=== PATIENT | female | born 1940 | race Caucasian/White ===

== ENCOUNTER 2016-11-01 11:41 | Emergency (ER) | payer MEDICARE ==
[~2016-11-01] VITALS: Ht 165.1 cm; Wt 86.0 kg
[~2016-11-01 11:41] MED LIST: ALBUAER3 INH; ASPI-110 PO; CENTTAB8 PO; CO Q10CA; CYMB60CA PO; FLUTI44I INH; FOLI1TAB4 PO; GLIM2TAB PO; HYDR-3516 PO; IPRASOL INH; ISOS20TA PO; LEVO-86 PO; LEVO125T4 PO; LISI10TA PO; METF500T PO; METH2.5T PO; METO50TA PO; NITR0.4S SL; OMEG100010; OXYC-433 PO; PRAV20TA PO; PRED2.5T PO; PRIL20CA9 PO; PROM10SO PO; SOMA350T PO; SULF500 PO; SYMB80AE INH; VAGI10TA VAGINAL; VITA10007 PO; VITA400T2 PO; XARE10TA PO; XARE20TA PO
[2016-11-01 11:54] VITALS: BP 111/53; PULSE 68; RESP 16; TEMP 98.7; O2SAT 96
--- NOTE | 2016-11-01 14:04 | PD ---
HPI Chief Complaint: Fall Time Seen by Provider: 14:02 Travel History International Travel<30 days: No Contact w/Intl Traveler<30days: No Traveled to known affect area: No History of Present Illness HPI Patient is a 76-year-old female presenting to emergency for evaluation after fall that occurred after she had an epidural performed today. Daughter is present and states the patient was getting dressed after an epidural injection in the hospital here when she states her leg gave out, she fell back hitting her left arm on a bedside table and then subsequently hitting her head on the floor. Patient presents complaining of back pain, headache, left shoulder pain , left hip pain. 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 She denies any chest pain, shortness of breath, abdominal pain in the leg pain. PFSH Past Medical History Hx Anticoagulant Therapy: Yes Arthritis: Yes (RHEUMATOID) Asthma: Yes Blood Disorders: No Anxiety: Yes Depression: Yes Heart Rhythm Problems: Yes Cancer: No Cardiovascular Problems: Yes High Cholesterol: Yes Chest Pain: No Congestive Heart Failure: No COPD: Yes Dementia: Yes Diabetes: Yes Patient Takes Glucophage: No Diminished Hearing: Yes Deep Vein Thrombosis: Yes (HX OF PE) Endocrine: Yes Fibromyalgia: Yes (POLYMYALGIA ) Gastrointestinal Disorders: Yes (COLITIS) GERD: No Glaucoma: No Genitourinary: Yes Hepatitis: No Hiatal Hernia: No Hypertension: Yes Immune Disorder: Yes Kidney Stones: No Medical other: Yes (ulcertive colitis, polymyalgia rheumatica) Musculoskeletal: Yes (POLYMYALGIA) Neurologic: No Psychiatric: No Reproductive: Yes Respiratory: Yes Immunizations Current: Yes Myocardial Infarction: No Renal Failure: Yes (ACUTE INSUFF; RESOLVED) Sleep Apnea: No Thyroid Disease: Yes Triglycerides - High: No Ulcer: No Tetanus Vaccination: < 5 Years Influenza Vaccination: Yes Menopausal: Yes Past Surgical History Abdominal Surgery: Yes (CHOLECYSTECTOMY) Appendectomy: No Body Medical Devices: POLYMYALGIA AND COLITIS Cardiac Surgery: Yes (ablasion) Cholecystectomy: Yes Ear Surgery: No Endocrine Surgery: No Eye Surgery: Yes (yesterday 02/20/12) Genitourinary Surgery: Yes (BLADDER REPAIR) Gynecologic Surgery: Yes (VAGINAL REPAIR 08/15) Hysterectomy: Yes Oral Surgery: No Pacemaker: No Thoracic Surgery: No Tonsillectomy: Yes Other Surgery: Yes (lump removed R BREAST, BENIGN) Social History Alcohol Use: Yes (SOCIALLY) Tobacco Use: No Substance Use: No Allergies-Medications (Allergen,Severity, Reaction): Coded Allergies: Penicillin (Verified Allergy, Severe, DIARRHEA, 11/01/16) Nitrofurantoin (Verified Allergy, Intermediate, 11/01/16) *MDRO Multi-Drug Resistant Organism (Verified Allergy, Unknown, 11/01/16) Enterobacter cloacae positive [facility] 09/2013 Reported Meds & Prescriptions Reported Meds & Active Scripts Active Reported Xarelto (Rivaroxaban) 20 Mg Tab 20 Mg PO DAILY Synthroid (Levothyroxine Sodium) 137 Mcg Tab 137 Mcg PO DAILY Glimepiride 2 Mg Tab 2 Mg PO BIDAC Soma (Carisoprodol) 350 Mg Tab 350 Mg PO BID PRN Co Q 10 (Coenzyme Q10 (Ubidecarenone)) [address] (Duloxetine HCl) 60 Mg Capdr 60 Mg PO DAILY Isosorbide Mononitrate 20 Mg Tab 60 Mg PO DAILY Take 2 doses 7 hours apart. Metoprolol Tartrate 50 Mg Tab 50 Mg PO BID Oxycodone-Acetaminophen 10-325 mg Tab 1 Tab PO Q4-6H PRN Nitrostat SL (Nitroglycerin) 0.4 Mg Subl 0.4 Mg SL DIRECTED PRN 1 tablet under the tongue as needed for chest pain. Repeat every 5 minutes for a total of 3 DOSES or call 911 if NO relief. Symbicort Inh (Budesonide/Formoterol Fumarate) 80-4.5 Mcg/Act Aero 2 Puff INH Q12HR Vagifem Vaginal (Estradiol Vaginal) 10 Mcg Vagtab 10 Mcg VAGINAL 2XWEEK [place] 3 1000 mg ([place]-3 Fatty Acids) 1 Cap Cap Proair Hfa 8.5 GM Inh (Albuterol Sulfate) 90 Mcg/Act Aer 1 Puff INH Q4H PRN 108 mcg/actuation Vitamin C (Ascorbic Acid) 1,000 Mg Tab 1,000 Mg PO DAILY Vitamin D (Cholecalciferol) 400 Unit Tab 1 Tab PO DAILY Folate (Folic Acid) 1 Mg Tab 1 Mg PO DAILY Levothyroxine (Levothyroxine Sodium) 125 Mcg Tab 125 Mcg PO DAILY Lisinopril-Hctz 10-12.5 Mg Tab 2 Tab PO DAILY Centrum Adults (Multiple Vitamins W/ Minerals) 1 Tab 1 Tab PO DAILY Prilosec (Omeprazole) 20 Mg Cap 40 Mg PO DAILY Prednisone 2.5 Mg Tab 2.5 Mg PO DAILY Duoneb (Ipratropium-Albuterol Neb) 0.5-2.5 Mg/3 Ml Neb 1 Nebule INH Q4HR NEB Review of Systems Except as stated in HPI: all other systems reviewed are Neg HENT: Positive: Headaches Cardiovascular: No: Chest Pain or Discomfort Respiratory: No: Shortness of Breath Gastrointestinal: No: Nausea, Abdominal Pain Musculoskeletal: Positive: Myalgias, Pain Neurologic: No: Focal Abnormalities, Change in Mentation, Sensory Disturbance Physical Exam Narrative GENERAL: Well-developed, well-nourished, elderly female. Resting comfortably in no acute distress. Daughter at bedside. SKIN: Warm and dry. HEAD: Atraumatic. Normocephalic. EYES: Pupils equal and round. No scleral icterus. No injection or drainage. ENT: No nasal bleeding or discharge. Mucous membranes pink and moist. NECK: Trachea midline. No JVD. CARDIOVASCULAR: Regular rate and rhythm. No murmur appreciated. RESPIRATORY: No accessory muscle use. Clear to auscultation. Breath sounds equal bilaterally. GASTROINTESTINAL: Abdomen soft, non-tender, nondistended. Hepatic and splenic margins not palpable. MUSCULOSKELETAL: No obvious deformities. No clubbing. No cyanosis. No edema. Tenderness to palpation on thoracic and lumbar spine. No step-off noted. 5/5 muscle strength in bilateral lower and upper extremities. Positive pedal pulses. 1+ Peripheral edema bilateral lower extremities, chronic. NEUROLOGICAL: Awake and alert. No obvious cranial nerve deficits. Motor grossly within normal limits. Normal speech. PSYCHIATRIC: Appropriate mood and affect; insight and judgment normal. Data Data Last Documented VS Vital Signs Date Time Temp Pulse Resp B/P Pulse Ox O2 Delivery O2 Flow Rate FiO2 11/01/16 11:54 98.7 68 16 111/[address] Thor Spine W/O Contrast (11/01/16 ) Ct Lumb Spine W/O Contrast (11/01/16 ) Shoulder, Complete (>2vws) (11/01/16 ) Hip, Uni(Ap&Lat) W Ap Pelvis (11/01/16 ) Ct Brain W/O Iv Contrast(Rout) (11/01/16 ) Acetaminophen (Tylenol) (11/01/16 15:00) [facility] Medical Decision Making Medical Screen Exam Complete: Yes Emergency Medical Condition: Yes Interpretation(s) Vital Signs Date Time Temp Pulse Resp B/P Pulse Ox O2 Delivery O2 Flow Rate FiO2 11/01/16 11:54 98.7 68 16 111/53 96 Differential Diagnosis Fracture versus sprain versus strain versus concussion versus contusion versus hemorrhage versus other Narrative Course Patient is a 76-year-old female presenting to the emergency department evaluation after mechanical fall after procedure this morning in the hospital. Patient is neurologically intact. Imaging ordered and pending. Patient has PICC line in left upper arm for IV antibiotics due to a chronic urinary tract infection. CT of the brain is negative for acute abnormality CT of the lumbar spine is negative acute abnormality CT scan of the thoracic spine is negative for acute abnormality X-ray of the left hip is negative for acute fracture or dislocation X-ray of the right shoulder is also negative for acute abnormality. Patient has been resting comfortably she is neurologically intact, she is encouraged follow-up with her primary care provider and her pain management doctor as scheduled. She is encouraged to return to emergency department for any new or worsening symptoms. She and daughter verbalized understanding of these instructions. Patient can continue her home pain medications. Patient is stable for discharge. Diagnosis Primary Impression: Fall Qualified Code: W19.XXXA - Fall, initial encounter Additional Impressions: Back pain Hip joint pain Qualified Code: M25.552 - Pain of left hip joint Shoulder injury Qualified Code: S49.92XA - Shoulder injury, left, initial encounter Referrals: Pain Management Primary Care Physician Patient Instructions: Back Pain (ED), General Instructions Additional Instructions: Follow-up with your primary doctor Follow-up with your supervisor painting department Apply warm moist heat to the affected area Continue home medications as previously prescribed Return to emergency department for any new or worsening symptoms Med/Other Pt SpecificInfo: No Change to Meds Disposition: 01 DISCHARGE HOME Condition: Stable Harper Fiore Nov 01, 2016 14:04
--- NOTE | 2016-11-01 14:29 | RADHPO ---
EXAM DATE/TIME: 11/01/2016 13:59 [facility] COMPARISON: No previous studies available for comparison. INDICATIONS : Left hip pain post fall after epidural injection today. MEDICAL HISTORY : Hypertension. Hypercholesterolemia. Ulcerative colitis. DVT. COPD. Arthrits. Diabetic. SURGICAL HISTORY : Tonsillectomy. Cholecystectomy. Hysterectomy. Bladder repair. Ablasion. Lumpectomy. ENCOUNTER: Initial ACUITY: 1 day PAIN SCORE: 6/10 LOCATION: Right hip FINDINGS: Examination of the left hip was performed with AP Pelvis. The primary and secondary trabecular patte rn of the femoral neck is intact. The hip joint is of normal width without significant sclerosis or bony hypertrophy. The acetabulum is grossly intact. CONCLUSION: No acute fracture or joint dislocation. Peyman Meehan MD on November 01, 2016 at 14:27 Board Certified Radiologist. This report was verified electronically.
--- NOTE | 2016-11-01 14:30 | RADHPO ---
EXAM DATE/TIME: 11/01/2016 14:02 [facility] COMPARISON: No previous studies available for comparison. INDICATIONS : Left shoulder pain post fall after epidural injection today. MEDICAL HISTORY : Hypertension. Hypercholesterolemia. Ulcerative colitis. COPD. DVT. diabetic. SURGICAL HISTORY : Tonsillectomy. Cholecystectomy. Hysterectomy. Bladder repari. Ablasion. Lumpectomy. ENCOUNTER: Initial ACUITY: 1 day PAIN SCORE: 8/10 LOCATION: Left shoulder FINDINGS: Multiple view examination of the left shoulder demonstrates no evidence of fracture or dislocation. The glenohumeral and acromioclavicular joints are maintained. There is normal range of motion betwee n internal and external rotation. Bony mineralization is normal. There is a left PICC line in place. CONCLUSION: No acute fracture. Left PICC line in place. Peyman Meehan MD on November 01, 2016 at 14:28 Board Certified Radiologist. This report was verified electronically.
[2016-11-01] MEDS ORDERED: ACETAMINOPHEN 325 MG TAB PO ONE (15:00)
--- NOTE | 2016-11-01 17:37 | RADHPO ---
EXAM DATE/TIME: 11/01/2016 16:56 [facility] COMPARISON: No previous studies available for comparison. INDICATIONS : Fall following epidural performed today. Posterior head trauma. RADIATION DOSE: 57.89 CTDIvol (mGy) MEDICAL HISTORY : Dementia. SURGICAL HISTORY : Tonsillectomy. ENCOUNTER: Initial ACUITY: 1 day PAIN SCALE: 8/10 LOCATION: occipital TECHNIQUE: Multiple contiguous axial images were obtained of the head. Using automated exposure control and adj ustment of the mA and/or kV according to patient size, radiation dose was kept as low as reasonably a chievable to obtain optimal diagnostic quality images. FINDINGS: CEREBRUM: The ventricles are normal for age. No evidence of midline shift, mass lesion, hemorrhage or acute in farction. No extra-axial fluid collections are seen. POSTERIOR FOSSA: The cerebellum and brainstem are intact. The 4th ventricle is midline. The cerebellopontine angle i s unremarkable. EXTRACRANIAL: The visualized portion of the orbits is intact. SKULL: The calvaria is intact. No evidence of skull fracture. CONCLUSION: Normal examination for a patient of this age. Peyman Meehan MD on November 01, 2016 at 17:35 Board Certified Radiologist. This report was verified electronically.
--- NOTE | 2016-11-01 17:50 | RADHPO ---
EXAM DATE/TIME: 11/01/2016 16:59 [facility] COMPARISON: No previous studies available for comparison. INDICATIONS : Fall today following epidural injection. Upper back pain. RADIATION DOSE: 43.59 CTDIvol (mGy) ; Combined studies - Thoracic Spine/Lumbar Spine MEDICAL HISTORY : Hypertension. Deep venous thrombosis. Diabetes. SURGICAL HISTORY : Hysterectomy. Cholecystectomy. ENCOUNTER: Initial ACUITY: 1 day PAIN SCALE: 7/10 LOCATION: upper back. TECHNIQUE: Volumetric scanning of the thoracic spine was performed. Multiplanar reconstructions in the sagittal , coronal and oblique axial planes were performed. Using automated exposure control and adjustment o f the mA and/or kV according to patient size, radiation dose was kept as low as reasonably achievable to obtain optimal diagnostic quality images. FINDINGS: The vertebral bodies of the thoracic spine are in normal alignment without evidence of subluxation. Vertebral body height is maintained. No fractures are seen. There are primary degenerative changes t hroughout the thoracic spine. T1-T2: Normal. T2-T3: The thecal sac has a normal diameter. No evidence of disc bulge or protrusion. T3-T4: The thecal sac has a normal diameter. No evidence of disc bulge or protrusion. T4-T5: The thecal sac has a normal diameter. No evidence of disc bulge or protrusion. T5-T6: The thecal sac has a normal diameter. No evidence of disc bulge or protrusion. T6-T7: The thecal sac has a normal diameter. No evidence of disc bulge or protrusion. T7-T8: The thecal sac has a normal diameter. No evidence of disc bulge or protrusion. T8-T9: The thecal sac has a normal diameter. No evidence of disc bulge or protrusion. T9-T10: The thecal sac has a normal diameter. No evidence of disc bulge or protrusion. T10-T11: The thecal sac has a normal diameter. No evidence of disc bulge or protrusion. T11-T12: The thecal sac has a normal diameter. No evidence of disc bulge or protrusion. T12-L1: The thecal sac has a normal diameter. No evidence of disc bulge or protrusion. CONCLUSION: 1. Primary bony degenerative changes of the thoracic spine. 2. No acute bony fracture. Peyman Meehan MD on November 01, 2016 at 17:46 Board Certified Radiologist. This report was verified electronically.
--- NOTE | 2016-11-01 17:58 | RADHPO ---
EXAM DATE/TIME: 11/01/2016 16:59 [facility] COMPARISON: No previous studies available for comparison. INDICATIONS : Fall today following epidural injection. Lower back pain. RADIATION DOSE: 43.59 CTDIvol (mGy) ; Combined studies - Thoracic Spine/Lumbar Spine MEDICAL HISTORY : Rheumatoid arthritis. Deep venous thrombosis. Diabetes. SURGICAL HISTORY : Cholecystectomy. Hysterectomy. ENCOUNTER: Initial ACUITY: 1 day PAIN SCALE: 8/10 LOCATION: lower back. TECHNIQUE: Volumetric scanning of the lumbar spine was performed. Multiplanar reconstructions in the sagittal, coronal and oblique axial planes were performed. Using automated exposure control and adjustment of the mA and/or kV according to patient size, radiation dose was kept as low as reasonably achievable t o obtain optimal diagnostic quality images. FINDINGS: VERTEBRAE: Normal vertebral body height. Primary bony degenerative changes of the lumbar spine. There is disc de generation with disc space narrowing at L4-5. ALIGNMENT: No evidence of subluxation. T12-L1: The thecal sac has a normal diameter. No evidence of disc bulge or protrusion. The neural foramina are patent bilaterally. L1-L2: The thecal sac has a normal diameter. No evidence of disc bulge or protrusion. The neural foramina are patent bilaterally. L2-L3: The thecal sac has a normal diameter. No evidence of disc bulge or protrusion. The neural foramina are patent bilaterally. L3-L4: The thecal sac has a normal diameter. No evidence of disc bulge or protrusion. The neural foramina are patent bilaterally. Bilateral facet arthritis. L4-L5: Moderate diffuse broad-based bulging and narrowing of the neuroforamina bilaterally. There is bilater al facet arthritis. Moderate spinal canal stenosis. L5-S1: Mild broad-based bulging. The neural foramina are patent. Bilateral facet arthritis. CONCLUSION: 1. No acute bony fracture. 2. Primary bony degenerative changes of the lumbar spine with disc space narrowing at L4-5. 3. Moderate diffuse broad-based bulging at L4-5 with moderate spinal canal stenosis. 4. Mild broad-based bulging L5-S1. 5. Bilateral facet arthritis at multiple levels. Peyman Meehan MD on November 01, 2016 at 17:54 Board Certified Radiologist. This report was verified electronically.
== END 2016-11-01 18:14 | disposition home or self-care (01) ==
LOC: PHED 11:41 → PHEFT 18:14
DX: S49.92XA Unspecified injury of left shoulder and upper arm, initial encounter (principal); M25.552 Pain in left hip; R51 Headache; M54.9 Dorsalgia, unspecified; W18.39XA Other fall on same level, initial encounter; Y93.89 Activity, other specified; Y92.239 Unspecified place in hospital as the place of occurrence of the external cause; M54.5 Low back pain; M79.605 Pain in left leg
CPT/HCPCS: 64483; 70450; 72128; 72131; 73030; 73502; 99152; J1642; J3301; Q9965

== ENCOUNTER → 2016-11-13 | Outpatient (CLI) | payer MEDICARE ==
[~2016-11-13] MED LIST changes: -ASPI-110 PO; -FLUTI44I INH; -HYDR-3516 PO; -METF500T PO; -METH2.5T PO; -PRAV20TA PO; -PROM10SO PO; +SIMV10TA PO; -SULF500 PO; +TRAM50TA PO; -XARE10TA PO; +ZOFR4TAB3 SL
[2016-11-13 16:43] LABS: BACTERIA, URINE RARE /hpf; BLOOD, URINE SMALL (NEG); GLUCOSE,URINE NEG (NEG); KETONE, URINE NEG (NEG); NITRITE,URINE NEG (NEG); PH, URINE 5.5 (5.0-8.5); SQUAMOUS EPITHELIAL CELL URINE 1 /hpf (0-5); URINE COLOR YELLOW (YELLW/STRAW)
== END ==
LOC: PLAB 14:51
PROVIDERS: ATTEND Specialist
DX: N39.0 Urinary tract infection, site not specified (principal); B96.20 Unspecified Escherichia coli [E. coli] as the cause of diseases classified elsewhere
CPT/HCPCS: 81001; 87077; 87086; 87186

== ENCOUNTER 2016-11-22 22:07 | Emergency (ER) | payer MEDICARE ==
[~2016-11-22 22:07] MED LIST changes: -SIMV10TA PO; -TRAM50TA PO; -ZOFR4TAB3 SL
[2016-11-22] MEDS ORDERED: ONDANSETRON HCL 4 MG/2 ML VIAL IV PUSH ONE (22:30)
[2016-11-22] MEDS ORDERED: MORPHINE SULFATE 4 MG/ML INJ IV PUSH ONE (22:30)
[2016-11-22 22:59] LABS: AUTOMATED NEUTROPHIL # 8.6 TH/MM3 (1.8-7.7); BASOPHIL % 0.3 % (0.0-2.0); EOSINOPHIL # 0.2 TH/MM3 (0-0.4); EOSINOPHIL % 1.9 % (0.0-4.0); HEMATOCRIT 34.4 % (35.0-46.0); HEMO FLAGS DIFF FINAL; LYMPH % 18.6 % (9.0-44.0); LYMPHOCYTE # 2.2 TH/MM3 (1.0-4.8); MEAN CELL VOLUME 96.3 FL (80.0-100.0); MEAN CORPUSCULAR HEMOGLOBIN 31.6 PG (27.0-34.0); MEAN CORPUSCULAR HGB CONC 32.8 % (32.0-36.0); MONO % 5.3 % (0.0-8.0); NEUT % 73.9 % (16.0-70.0); PLATELET COUNT 169 TH/MM3 (150-450); RED BLOOD COUNT 3.57 MIL/MM3 (4.00-5.30); RED CELL DISTRIBUTION WIDTH 13.8 % (11.6-17.2); WHITE BLOOD COUNT 11.7 TH/MM3 (4.0-11.0)
[2016-11-22 23:07] LABS: INTERNATIONAL NORMALIZED RATIO 1.2 RATIO; PROTHROMBIN TIME - PATIENT 12.8 SEC (9.8-11.6)
--- NOTE | 2016-11-22 23:07 | RADRPT ---
EXAM DATE/TIME: 11/22/2016 22:38 [facility] COMPARISON: No previous studies available for comparison. INDICATIONS : Right shoulder pain after patient fell from truck today MEDICAL HISTORY : None. SURGICAL HISTORY : None. ENCOUNTER: Initial ACUITY: 1 day PAIN SCORE: 10/10 LOCATION: Right entire shoulder FINDINGS: There is advanced osteoarthritis of the shoulder joint with large osteophytes and joint space narrowi ng. Moderate osteoarthritis of the a.c. joint. Hypertrophic changes noted around the acromion. No acu te fracture or dislocation. CONCLUSION: 1. Osteoarthritis of the right shoulder. No acute bony abnormalities. Oneil Figueroa MD on November 22, 2016 at 23:04 Board Certified Radiologist. This report was verified electronically.
--- NOTE | 2016-11-22 23:08 | RADRPT ---
EXAM DATE/TIME: 11/22/2016 22:46 [facility] COMPARISON: No previous studies available for comparison. INDICATIONS : Trauma to chest after patient fell from truck today MEDICAL HISTORY : None. SURGICAL HISTORY : PICC line ENCOUNTER: Initial ACUITY: 1 day PAIN SCORE: 0/10 LOCATION: Bilateral chest FINDINGS: Left PICC line tip is in superior vena cava. No focal consolidation or significant effusion. No pneum othorax. Heart size normal. Mildly tortuous aorta. CONCLUSION: 1. Left PICC line tip in superior vena cava. No active disease. Oneil Figueroa MD on November 22, 2016 at 23:05 Board Certified Radiologist. This report was verified electronically.
[2016-11-22 23:11] VITALS: BP 147/68; PULSE 68; RESP 16; TEMP 98.5; O2SAT 96
--- NOTE | 2016-11-22 23:11 | RADRPT ---
EXAM DATE/TIME: 11/22/2016 22:56 [facility] COMPARISON: No previous studies available for comparison. INDICATIONS : Fall. RADIATION DOSE: 42.99 CTDIvol (mGy) MEDICAL HISTORY : Dementia. Hypertension. SURGICAL HISTORY : Neck surgery. ENCOUNTER: Initial ACUITY: 1 day PAIN SCALE: 3/10 LOCATION: neck TECHNIQUE: Volumetric scanning of the cervical spine was performed. Multiplanar reconstructions in the sagittal, coronal and oblique axial planes were performed. Using automated exposure control and adjustment o f the mA and/or kV according to patient size, radiation dose was kept as low as reasonably achievable to obtain optimal diagnostic quality images. FINDINGS: VERTEBRAE: Normal vertebral body height. ALIGNMENT: No evidence of subluxation. C2-C3: The bony spinal canal is normal in size. No evidence of disc bulge or herniation. The neural forami na are bilaterally patent. C3-C4: The bony spinal canal is normal in size. No evidence of disc bulge or herniation. The neural forami na are bilaterally patent. C4-C5: The bony spinal canal is normal in size. No evidence of disc bulge or herniation. The neural forami na are bilaterally patent. C5-C6: The bony spinal canal is normal in size. No evidence of disc bulge or herniation. The neural forami na are bilaterally patent. C6-C7: The bony spinal canal is normal in size. No evidence of disc bulge or herniation. The neural forami na are bilaterally patent. C7-T1: The bony spinal canal is normal in size. No evidence of disc bulge or herniation. The neural forami na are bilaterally patent. CONCLUSION: 1. Mild degenerative disc disease and facet arthropathy. No acute findings. Oneil Figueroa MD on November 22, 2016 at 23:06 Board Certified Radiologist. This report was verified electronically.
--- NOTE | 2016-11-22 23:12 | RADRPT ---
EXAM DATE/TIME: 11/22/2016 22:56 [facility] COMPARISON: No previous studies available for comparison. INDICATIONS : Fall. RADIATION DOSE: 42.63 CTDIvol (mGy) MEDICAL HISTORY : Dementia. Hypertension. SURGICAL HISTORY : Neck surgery ENCOUNTER: Initial ACUITY: 1 day PAIN SCALE: 4/10 LOCATION: cranial TECHNIQUE: Multiple contiguous axial images were obtained of the head. Using automated exposure control and adj ustment of the mA and/or kV according to patient size, radiation dose was kept as low as reasonably a chievable to obtain optimal diagnostic quality images. FINDINGS: CEREBRUM: The ventricles are normal for age. No evidence of midline shift, mass lesion, hemorrhage or acute in farction. No extra-axial fluid collections are seen. POSTERIOR FOSSA: The cerebellum and brainstem are intact. The 4th ventricle is midline. The cerebellopontine angle i s unremarkable. EXTRACRANIAL: The visualized portion of the orbits is intact. SKULL: The calvaria is intact. No evidence of skull fracture. CONCLUSION: Normal examination for a patient of this age. No significant change has occurred. Oneil Figueroa MD on November 22, 2016 at 23:09 Board Certified Radiologist. This report was verified electronically.
[2016-11-22 23:43] LABS: BICARBONATE 28.8 MEQ/L (21.0-32.0)
[2016-11-23] MEDS ORDERED: traMADol HCL 50 MG TAB PO ONE (00:15)
--- NOTE | 2016-11-23 00:18 | PD ---
HPI Chief Complaint: Fall Time Seen by Provider: 22:17 Travel History International Travel<30 days: No Contact w/Intl Traveler<30days: No Traveled to known affect area: No History of Present Illness HPI Patient is a 76-year-old female comes in today after fall. She was climbing into her truck when she slipped and fell backwards onto her head. She denies any loss of consciousness. He is complaining of headache and right shoulder pain. She was feeling normally prior to the fall. She denies any nausea or vomiting. She denies any blurred vision. She denies any numbness or tingling in her extremities. She denies any chest pain or shortness of breath. She denies any abdominal pain. PFSH Past Medical History Hx Anticoagulant Therapy: Yes Arthritis: Yes (RHEUMATOID) Asthma: Yes Blood Disorders: No Anxiety: Yes Depression: Yes Heart Rhythm Problems: Yes Cancer: No Cardiovascular Problems: Yes High Cholesterol: Yes Chest Pain: No Congestive Heart Failure: No COPD: Yes Dementia: Yes Diabetes: Yes Patient Takes Glucophage: No Diminished Hearing: Yes Deep Vein Thrombosis: Yes (HX OF PE) Endocrine: Yes Fibromyalgia: Yes (POLYMYALGIA ) Gastrointestinal Disorders: Yes (COLITIS) GERD: No Glaucoma: No Genitourinary: Yes Hepatitis: No Hiatal Hernia: No Heparin Induced Thrombocytopen: No Hypertension: Yes Immune Disorder: Yes Implanted Vascular Access Dvce: No Kidney Stones: No Medical other: Yes (ulcertive colitis, polymyalgia rheumatica) Musculoskeletal: Yes (POLYMYALGIA) Neurologic: No Psychiatric: No Reproductive: Yes Respiratory: Yes Immunizations Current: Yes Myocardial Infarction: No Renal Failure: Yes (ACUTE INSUFF; RESOLVED) Sleep Apnea: No Thyroid Disease: Yes Triglycerides - High: No Ulcer: No Menopausal: Yes Past Surgical History Abdominal Surgery: Yes (CHOLECYSTECTOMY) Appendectomy: No Body Medical Devices: POLYMYALGIA AND COLITIS Cardiac Surgery: Yes (ablasion) Cholecystectomy: Yes Ear Surgery: No Endocrine Surgery: No Eye Surgery: Yes (yesterday 02/20/12) Genitourinary Surgery: Yes (BLADDER REPAIR) Gynecologic Surgery: Yes (VAGINAL REPAIR 08/15) Hysterectomy: Yes Neurologic Surgery: No Oral Surgery: No Pacemaker: No Thoracic Surgery: No Tonsillectomy: Yes Other Surgery: Yes (lump removed R BREAST, BENIGN) Social History Alcohol Use: Yes (SOCIALLY) Tobacco Use: No Substance Use: No Allergies-Medications (Allergen,Severity, Reaction): Coded Allergies: Penicillin (Verified Allergy, Severe, DIARRHEA, 11/01/16) Nitrofurantoin (Verified Allergy, Intermediate, 11/01/16) *MDRO Multi-Drug Resistant Organism (Verified Allergy, Unknown, 11/15/16) Enterobacter cloacae positive [facility] 09/2013; ESBL E.Coli (urine)-11/13/16 Reported Meds & Prescriptions Reported Meds & Active Scripts Active Tramadol (Tramadol HCl) 50 Mg Tab 50 Mg PO Q6H PRN Reported Xarelto (Rivaroxaban) 20 Mg Tab 20 Mg PO DAILY Synthroid (Levothyroxine Sodium) 137 Mcg Tab 137 Mcg PO DAILY Glimepiride 2 Mg Tab 2 Mg PO BIDAC Soma (Carisoprodol) 350 Mg Tab 350 Mg PO BID PRN Co Q 10 (Coenzyme Q10 (Ubidecarenone)) [address] (Duloxetine HCl) 60 Mg Capdr 60 Mg PO DAILY Isosorbide Mononitrate 20 Mg Tab 60 Mg PO DAILY Take 2 doses 7 hours apart. Metoprolol Tartrate 50 Mg Tab 50 Mg PO BID Oxycodone-Acetaminophen 10-325 mg Tab 1 Tab PO Q4-6H PRN Nitrostat SL (Nitroglycerin) 0.4 Mg Subl 0.4 Mg SL DIRECTED PRN 1 tablet under the tongue as needed for chest pain. Repeat every 5 minutes for a total of 3 DOSES or call 911 if NO relief. Symbicort Inh (Budesonide/Formoterol Fumarate) 80-4.5 Mcg/Act Aero 2 Puff INH Q12HR Vagifem Vaginal (Estradiol Vaginal) 10 Mcg Vagtab 10 Mcg VAGINAL 2XWEEK [place] 3 1000 mg ([place]-3 Fatty Acids) 1 Cap Cap Proair Hfa 8.5 GM Inh (Albuterol Sulfate) 90 Mcg/Act Aer 1 Puff INH Q4H PRN 108 mcg/actuation Vitamin C (Ascorbic Acid) 1,000 Mg Tab 1,000 Mg PO DAILY Vitamin D (Cholecalciferol) 400 Unit Tab 1 Tab PO DAILY Folate (Folic Acid) 1 Mg Tab 1 Mg PO DAILY Levothyroxine (Levothyroxine Sodium) 125 Mcg Tab 125 Mcg PO DAILY Lisinopril-Hctz 10-12.5 Mg Tab 2 Tab PO DAILY Centrum Adults (Multiple Vitamins W/ Minerals) 1 Tab 1 Tab PO DAILY Prilosec (Omeprazole) 20 Mg Cap 40 Mg PO DAILY Prednisone 2.5 Mg Tab 2.5 Mg PO DAILY Duoneb (Ipratropium-Albuterol Neb) 0.5-2.5 Mg/3 Ml Neb 1 Nebule INH Q4HR NEB Review of Systems Except as stated in HPI: all other systems reviewed are Neg General / Constitutional: No: Fever, Chills Eyes: No: Blurred Vision HENT: Positive: Headaches Cardiovascular: No: Chest Pain or Discomfort Respiratory: No: Shortness of Breath Gastrointestinal: No: Nausea, Vomiting, Abdominal Pain Musculoskeletal: Positive: Pain Skin: No Change in Pigmentation Neurologic: No: Weakness, Dizziness Physical Exam Narrative GENERAL: Awake and alert, in no acute distress. SKIN: Warm and dry. HEAD: Hematoma to the left occiput. EYES: Pupils equal and round. No scleral icterus. Extraocular movements intact. ENT: Mucous membranes pink and moist. NECK: Trachea midline. No JVD. CARDIOVASCULAR: Regular rate and rhythm. No murmur appreciated. RESPIRATORY: No accessory muscle use. Clear to auscultation. Breath sounds equal bilaterally. GASTROINTESTINAL: Abdomen soft, non-tender, nondistended. MUSCULOSKELETAL: No obvious deformities. No clubbing. No cyanosis. No edema. NEUROLOGICAL: Awake and alert. No obvious cranial nerve deficits. Motor grossly within normal limits. Normal speech. PSYCHIATRIC: Appropriate mood and affect; insight and judgment normal. Data Data Last Documented VS Vital Signs Date Time Temp Pulse Resp B/P Pulse Ox O2 Delivery O2 Flow Rate FiO2 11/22/16 23:12 Room Air 11/22/16 23:11 98.5 68 16 147/[address] Brain W/O Iv Contrast(Rout) (11/22/16 ) Ct Cerv Spine W/O Contrast (11/22/16 ) Shoulder, Complete (>2vws) (11/22/16 ) Complete Blood Count With Diff (11/22/16 22:17) Basic Metabolic Panel (Bmp) (11/22/16 22:17) Act Partial Throm Time (Ptt) (11/22/16 22:17) Prothrombin Time / Inr (Pt) (11/22/16 22:17) Morphine Inj (Morphine Inj) (11/22/16 22:30) Ondansetron Inj (Zofran Inj) (11/22/16 22:30) Chest, Single Ap (11/22/16 ) Tramadol (Ultram) (11/23/16 00:15) Labs Laboratory Tests Test 11/22/16 22:33 White Blood Count 11.7 TH/MM3 Red Blood Count 3.57 MIL/MM3 Hemoglobin 11.3 GM/DL Hematocrit 34.4 % Mean Corpuscular Volume 96.3 FL Mean Corpuscular Hemoglobin 31.6 PG Mean Corpuscular Hemoglobin 32.8 % Concent Red Cell Distribution Width 13.8 % Platelet Count 169 TH/MM3 Mean Platelet Volume 8.5 FL Neutrophils (%) (Auto) 73.9 % Lymphocytes (%) (Auto) 18.6 % Monocytes (%) (Auto) 5.3 % Eosinophils (%) (Auto) 1.9 % Basophils (%) (Auto) 0.3 % Neutrophils # (Auto) 8.6 TH/MM3 Lymphocytes # (Auto) 2.2 TH/MM3 Monocytes # (Auto) 0.6 TH/MM3 Eosinophils # (Auto) 0.2 TH/MM3 Basophils # (Auto) 0.0 TH/MM3 CBC Comment DIFF FINAL Differential Comment Prothrombin Time 12.8 SEC Prothromb Time International 1.2 RATIO Ratio Activated Partial 32.0 SEC Thromboplast Time Sodium Level 137 MEQ/L Potassium Level 4.0 MEQ/L Chloride Level 101 MEQ/L Carbon Dioxide Level 28.8 MEQ/L Anion Gap 7 MEQ/L Blood Urea Nitrogen 31 MG/DL Creatinine 1.11 MG/DL Estimat Glomerular Filtration 48 ML/MIN Rate Random Glucose 182 MG/DL Calcium Level 8.5 MG/DL [facility] Medical Decision Making Medical Screen Exam Complete: Yes Emergency Medical Condition: Yes Differential Diagnosis ICH versus cervical spine fracture versus shoulder fracture versus shoulder sprain Narrative Course Patient is a 76-year-old female who comes in after a fall tonight. Exam shows hematoma to the left side of the head. IV established, labs sent. Coags were within normal limits. CT head and C-spine performed show no acute abnormalities. X-ray of the right shoulder performed shows severe arthritis, no acute abnormalities. Patient given pain medicine. Patient advised of warning signs for head injuries and advised to return immediately if she has any increased headache, vomiting, change in mental status. She is comfortable with discharge at this time. Advised follow-up with her doctor. Diagnosis Primary Impression: Fall Qualified Code: W19.XXXA - Fall, initial encounter Patient Instructions: Fall Prevention (ED), General Instructions, Head Injury ( ED) Additional Instructions: Follow up with your doctor. Return to the ED if you have any worsening symptoms , especially if you have a change in mental status, vomiting, worsening headache. Scripts Tramadol 50 Mg Tab50 Mg PO Q6H PRN (PAIN) #10 TAB Ref 0 Prov:Cristina Mcknight MD 11/23/16 Disposition: 01 DISCHARGE HOME Condition: Stable Cristina Mcknight MD Nov 23, 2016 00:18
[2016-11-23] MEDS ORDERED: TRAM50TA PO (00:19)
== END 2016-11-23 01:00 | disposition home or self-care (01) ==
LOC: NEPA 22:07
DX: S00.83XA Contusion of other part of head, initial encounter (principal); M19.011 Primary osteoarthritis, right shoulder; I10 Essential (primary) hypertension; E11.9 Type 2 diabetes mellitus without complications; F03.90 Unspecified dementia, unspecified severity, without behavioral disturbance, psychotic disturbance, mood disturbance, and anxiety; E78.00 Pure hypercholesterolemia, unspecified; W17.89XA Other fall from one level to another, initial encounter; Z79.01 Long term (current) use of anticoagulants; Z79.84 Long term (current) use of oral hypoglycemic drugs; Z87.39 Personal history of other diseases of the musculoskeletal system and connective tissue; Z87.09 Personal history of other diseases of the respiratory system; Z86.59 Personal history of other mental and behavioral disorders; Z86.79 Personal history of other diseases of the circulatory system; Z87.19 Personal history of other diseases of the digestive system
CPT/HCPCS: 70450; 71010; 72125; 73030; 80048; 85025; 85610; 85730; 96374; 96375; 99284; J2270; J2405

== ENCOUNTER 2016-11-25 21:09 | Emergency (ER) | payer MEDICARE ==
[~2016-11-25] VITALS: Ht 165.1 cm; Wt 82.0 kg
[~2016-11-25 21:09] MED LIST changes: +TRAM50TA PO
[2016-11-25 21:11] VITALS: BP 156/86; PULSE 82; RESP 16; TEMP 98.3; O2SAT 96
[2016-11-26] MEDS ORDERED: SODIUM CHLORID 0.9% 500 ML INJ 500 ML IV ONE (01:00)
[2016-11-26] MEDS ORDERED: ONDANSETRON HCL 4 MG/2 ML VIAL IV ONE (01:00)
[2016-11-26] MEDS ORDERED: SIMV10TA PO (01:02)
--- NOTE | 2016-11-26 01:16 | RADRPT ---
EXAM DATE/TIME: 11/26/2016 01:07 [facility] COMPARISON: CHEST SINGLE AP, November 22, 2016, 22:46. INDICATIONS : Short of breath. MEDICAL HISTORY : None. SURGICAL HISTORY : PICC line. ENCOUNTER: Initial ACUITY: 1 day PAIN SCORE: 0/10 LOCATION: Bilateral chest FINDINGS: Mild cardiomegaly. Left PICC line tip overlies the SVC. No consolidation or effusion. Stable linear a telectasis left lung base. CONCLUSION: No significant change has occurred. Boubacar Underwood MD on November 26, 2016 at 1:14 Board Certified Radiologist. This report was verified electronically.
[2016-11-26 01:29] LABS: AUTOMATED NEUTROPHIL # 6.4 TH/MM3 (1.8-7.7); BASOPHIL # 0.1 TH/MM3 (0-0.2); BASOPHIL % 0.6 % (0.0-2.0); EOSINOPHIL # 0.3 TH/MM3 (0-0.4); EOSINOPHIL % 3.5 % (0.0-4.0); HEMO FLAGS DIFF FINAL; LYMPH % 21.3 % (9.0-44.0); MEAN CELL VOLUME 94.6 FL (80.0-100.0); MEAN CORPUSCULAR HEMOGLOBIN 32.1 PG (27.0-34.0); MEAN CORPUSCULAR HGB CONC 33.9 % (32.0-36.0); MONO % 6.2 % (0.0-8.0); NEUT % 68.4 % (16.0-70.0); PLATELET COUNT 166 TH/MM3 (150-450); RED BLOOD COUNT 3.28 MIL/MM3 (4.00-5.30); RED CELL DISTRIBUTION WIDTH 13.8 % (11.6-17.2); WHITE BLOOD COUNT 9.4 TH/MM3 (4.0-11.0)
[2016-11-26 01:37] LABS: APTT (PATIENT) 33.8 SEC (24.3-30.1); INTERNATIONAL NORMALIZED RATIO 1.2 RATIO; PROTHROMBIN TIME - PATIENT 13.7 SEC (9.8-11.6)
[2016-11-26 01:40] LABS: ALT (GPT) 31 U/L (10-53); ANION GAP 7 MEQ/L (5-15); AST (GOT) 16 U/L (15-37); BICARBONATE 28.6 MEQ/L (21.0-32.0); BLOOD UREA NITROGEN 18 MG/DL (7-18); CHLORIDE 100 MEQ/L (98-107); GLOMERULAR FILTRATION RATE 68 ML/MIN (>89); POTASSIUM 3.4 MEQ/L (3.5-5.1); SODIUM (NA) 136 MEQ/L (136-145)
[2016-11-26 01:42] LABS: ALKALINE PHOSPHATASE 74 U/L (45-117); TOTAL BILIRUBIN ADULT 0.2 MG/DL (0.2-1.0)
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
[2016-11-26 02:17] LABS: BLOOD, URINE NEG (NEG); COMMENT (UR) CULTURE INDICATED; CULTURE IF INDICATED CULTURE INDICATED; GLUCOSE,URINE NEG (NEG); KETONE, URINE NEG (NEG); NITRITE,URINE NEG (NEG); SQUAMOUS EPITHELIAL CELL URINE <1 /hpf (0-5); TRANSITIONAL EPI CELLS, URINE <1 /hpf; URINE COLOR YELLOW (YELLW/STRAW)
[2016-11-26] MEDS ORDERED: ZOFR4TAB3 SL (02:36)
--- NOTE | 2016-11-26 02:37 | PD ---
HPI Chief Complaint: Head Injury Time Seen by Provider: 00:51 Travel History International Travel<30 days: No Contact w/Intl Traveler<30days: No Traveled to known affect area: No History of Present Illness HPI The patient is 76 year old female who presents to the [facility] emergency department with a history of headache, dizziness, nausea and vomiting that began after a fall when she was climbing up into a truck and fell backwards onto the concrete, striking the back of her head. The patient had no loss of consciousness associated with this. She was seen in the emergency department related to the fall on November 22. The patient had a CT scan of the head and neck done that was unremarkable regarding acute trauma. The patient was noted to have a scalp contusion on the occiput with an abrasion. The patient at that time had no nausea or vomiting. The patient reports that the nausea and vomiting began yesterday. She reports that she's had 4 episodes of vomiting. She denies having any diarrhea. She reports that she feels unsteady on her feet. She reports that bending over seems to make the pain worse. The patient is chronically anticoagulated on Xarelto related to a history of factor V Leiden deficiency and prior pulmonary embolism. The patient reports that today she also noticed that she had a red spot that developed on the white of her right eye. The patient denies any recent fevers, cough, congestion, neck pain, chest pain, shortness of breath, abdominal pain, urinary symptoms, or other neurologic symptoms. [facility] Past Medical History Narrative Medical The patient's past medical history is significant for rheumatoid arthritis, history of being chronically anticoagulated on Xarelto related to a factor V Leiden deficiency and prior PE, history of asthma, anxiety and depression, history of hyperlipidemia, history of COPD, history of diabetes mellitus, ulcerative colitis, polymyalgia rheumatica, and chronic renal insufficiency. The patient reports that she's had a chronic urinary tract infection for the last 9 years. She receives antibiotic infusions for this. Hx Anticoagulant Therapy: Yes (FACTOR 5) Arthritis: Yes (RHEUMATOID) Asthma: Yes Blood Disorders: No Anxiety: Yes Depression: Yes Heart Rhythm Problems: Yes Cancer: Yes (skin cancer on face) Cardiovascular Problems: Yes (HTN) High Cholesterol: Yes Chest Pain: No Congestive Heart Failure: No COPD: Yes Dementia: Yes Diabetes: Yes Patient Takes Glucophage: No Diminished Hearing: Yes Deep Vein Thrombosis: Yes (HX OF PE) Endocrine: Yes Fibromyalgia: Yes (POLYMYALGIA ) Gastrointestinal Disorders: Yes (ulcerative colitis) GERD: Yes Glaucoma: No Genitourinary: Yes Hepatitis: No Hiatal Hernia: No Heparin Induced Thrombocytopen: No Hypertension: Yes Immune Disorder: Yes Implanted Vascular Access Dvce: No Kidney Stones: No Medical other: Yes (factor 5 gene, polymyalgia) Musculoskeletal: Yes (POLYMYALGIA) Neurologic: No Psychiatric: No Reproductive: Yes Respiratory: Yes (COPD, ASTHMA) Immunizations Current: Yes Myocardial Infarction: No Renal Failure: Yes (ACUTE INSUFF; RESOLVED) Sleep Apnea: No Thyroid Disease: Yes Triglycerides - High: No Ulcer: No Influenza Vaccination: Yes Menopausal: No : 3 Para: 3 Past Surgical History Narrative Surgical The patient's past surgical history is significant for cholecystectomy, cardiac ablation, history of a bladder repair, vaginal repair, eye surgery, lump removal from the right breast that was benign, hysterectomy. Abdominal Surgery: Yes (CHOLECYSTECTOMY) Appendectomy: No Body Medical Devices: POLYMYALGIA AND COLITIS Cardiac Surgery: Yes (ablasion) Cholecystectomy: Yes Ear Surgery: No Endocrine Surgery: No Eye Surgery: Yes (left eye retina surgery) Genitourinary Surgery: Yes (BLADDER REPAIR) Gynecologic Surgery: Yes (VAGINAL REPAIR 08/15) Hysterectomy: Yes Neurologic Surgery: No Oral Surgery: No Pacemaker: No Thoracic Surgery: No Tonsillectomy: Yes Other Surgery: Yes (lump removed R BREAST, BENIGN) Social History Alcohol Use: Yes (occassionally) Tobacco Use: No Substance Use: No Allergies-Medications (Allergen,Severity, Reaction): Coded Allergies: Penicillin (Verified Allergy, Severe, DIARRHEA, 11/25/16) Nitrofurantoin (Verified Allergy, Intermediate, 11/25/16) *MDRO Multi-Drug Resistant Organism (Verified Allergy, Unknown, 11/25/16) Enterobacter cloacae positive [facility] 09/2013; ESBL E.Coli (urine)-11/13/16 Reported Meds & Prescriptions Reported Meds & Active Scripts Active Zofran Odt (Ondansetron Odt) 4 Mg Tab 4 Mg SL Q6HR PRN Tramadol (Tramadol HCl) 50 Mg Tab 50 Mg PO Q6H PRN Reported Simvastatin 10 Mg Tab 10 Mg PO HS Xarelto (Rivaroxaban) 20 Mg Tab 20 Mg PO DAILY Synthroid (Levothyroxine Sodium) 137 Mcg Tab 137 Mcg PO DAILY Glimepiride 2 Mg Tab 2 Mg PO BIDAC Soma (Carisoprodol) 350 Mg Tab 350 Mg PO BID PRN Co Q 10 (Coenzyme Q10 (Ubidecarenone)) [address] (Duloxetine HCl) 60 Mg Capdr 60 Mg PO DAILY Isosorbide Mononitrate 20 Mg Tab 60 Mg PO DAILY Take 2 doses 7 hours apart. Metoprolol Tartrate 50 Mg Tab 50 Mg PO BID Oxycodone-Acetaminophen 10-325 mg Tab 1 Tab PO Q4-6H PRN Nitrostat SL (Nitroglycerin) 0.4 Mg Subl 0.4 Mg SL DIRECTED PRN 1 tablet under the tongue as needed for chest pain. Repeat every 5 minutes for a total of 3 DOSES or call 911 if NO relief. Symbicort Inh (Budesonide/Formoterol Fumarate) 80-4.5 Mcg/Act Aero 2 Puff INH Q12HR Vagifem Vaginal (Estradiol Vaginal) 10 Mcg Vagtab 10 Mcg VAGINAL 2XWEEK [place] 3 1000 mg ([place]-3 Fatty Acids) 1 Cap Cap Proair Hfa 8.5 GM Inh (Albuterol Sulfate) 90 Mcg/Act Aer 1 Puff INH Q4H PRN 108 mcg/actuation Vitamin C (Ascorbic Acid) 1,000 Mg Tab 1,000 Mg PO DAILY Vitamin D (Cholecalciferol) 400 Unit Tab 1 Tab PO DAILY Folate (Folic Acid) 1 Mg Tab 1 Mg PO DAILY Levothyroxine (Levothyroxine Sodium) 125 Mcg Tab 125 Mcg PO DAILY Lisinopril-Hctz 10-12.5 Mg Tab 2 Tab PO DAILY Centrum Adults (Multiple Vitamins W/ Minerals) 1 Tab 1 Tab PO DAILY Prilosec (Omeprazole) 20 Mg Cap 40 Mg PO DAILY Prednisone 2.5 Mg Tab 2.5 Mg PO DAILY Duoneb (Ipratropium-Albuterol Neb) 0.5-2.5 Mg/3 Ml Neb 1 Nebule INH Q4HR NEB Review of Systems Except as stated in HPI: all other systems reviewed are Neg General / Constitutional: No: Fever Eyes: No: Visual changes HENT: Positive: Headaches, Neck Pain, No: Lightheadedness, Neck Stiffness Cardiovascular: No: Chest Pain or Discomfort Respiratory: No: Shortness of Breath Gastrointestinal: Positive: Nausea, Vomiting, No: Diarrhea, Abdominal Pain, Changes in Bowel Habits, Indigestion, Loss of Appetite Genitourinary: No: Dysuria Musculoskeletal: No: Pain Skin: No Rash Neurologic: Positive: Dizziness, Coordination Problem, No: Weakness, Focal Abnormalities, Change in Mentation, Slurred Speech, Sensory Disturbance Psychiatric: No: Depression Endocrine: No: Polydipsia Hematologic/Lymphatic: No: Easy Bruising Physical Exam Narrative General: The patient is a well-developed well-nourished female in no acute distress. Head and Neck exam: Head is normocephalic, without evidence of trauma to the posterior occipital scalp. The patient on examination has a scalp hematoma with overlying abrasion. There is tenderness to palpation at this site. No step-off or crepitus. Eyes: EOMI, pupils are equal round and reactive to light. The patient's right eye on examination has a small slit come to arrival hemorrhage at approximately the 2 o'clock position. Nose: Midline septum with pink mucous membranes Mouth: Dentition unremarkable. Moist mucus membranes. Posterior oropharynx is not erythematous. No tonsillar hypertrophy. Uvula midline. Airway patent. Neck: No palpable lymphadenopathy. No nuchal rigidity. No thyromegaly. The patient has no spinous process tenderness to palpation. No step-off or crepitus , no erythema or ecchymosis. The patient has paraspinal cervical muscle tenderness on palpation bilaterally. Cardiovascular: Regular rate and rhythm without murmurs, gallops, or rubs. Lungs: Clear to auscultation bilaterally. No wheezes, rhonchi, or rales. Abdomen: Soft, without tenderness to palpation in all 4 quadrants of the abdomen. No guarding, rebound, or rigidity. Normal bowel sounds are audible. No tenderness on palpation of McBurney's point. Negative Menendez's sign. Extremities: No clubbing, cyanosis, or edema. 2+ pulses in all 4 extremities. Back: No spinous process tenderness to palpation. No costovertebral angle tenderness to palpation. Neurologic Exam: Cranial nerves 2-12 were intact on exam. Strength is 5/5 in all 4 extremities. No sensory deficits noted. Data Data Last Documented VS Vital Signs Date Time Temp Pulse Resp B/P Pulse Ox O2 Delivery O2 Flow Rate FiO2 11/25/16 21:11 98.3 82 16 156/86 96 Orders Complete Blood Count With Diff (11/26/16 00:51) Comprehensive Metabolic Panel (11/26/16 00:51) Prothrombin Time / Inr (Pt) (11/26/16 00:51) Act Partial Throm Time (Ptt) (11/26/16 00:51) C-Reactive Protein (Crp) (11/26/16 00:51) Lipase (11/26/16 00:51) Urinalysis - C+S If Indicated (11/26/16 00:51) Chest, Single Ap (11/26/16 00:51) Ct Brain W/O Iv Contrast(Rout) (11/26/16 00:51) Iv Access Insert/Monitor (11/26/16 00:51) Ecg Monitoring (11/26/16 00:51) Oximetry (11/26/16 00:51) Ondansetron Inj (Zofran Inj) (11/26/16 01:00) Sodium Chlorid 0.9% 500 Ml Inj (Ns 500 M (11/26/16 01:00) Urine Culture (11/26/16 02:00) Oral Rehydration (11/26/16 02:37) Morphine Inj (Morphine Inj) (11/26/16 04:15) Oxycodone-Acetamin 5-325 Mg (Percocet (11/26/16 05:15) Labs Laboratory Tests Test 11/26/16 11/26/16 01:15 02:00 White Blood Count 9.4 TH/MM3 Red Blood Count 3.28 MIL/MM3 Hemoglobin 10.5 GM/DL Hematocrit 31.0 % Mean Corpuscular Volume 94.6 FL Mean Corpuscular Hemoglobin 32.1 PG Mean Corpuscular Hemoglobin 33.9 % Concent Red Cell Distribution Width 13.8 % Platelet Count 166 TH/MM3 Mean Platelet Volume 8.6 FL Neutrophils (%) (Auto) 68.4 % Lymphocytes (%) (Auto) 21.3 % Monocytes (%) (Auto) 6.2 % Eosinophils (%) (Auto) 3.5 % Basophils (%) (Auto) 0.6 % Neutrophils # (Auto) 6.4 TH/MM3 Lymphocytes # (Auto) 2.0 TH/MM3 Monocytes # (Auto) 0.6 TH/MM3 Eosinophils # (Auto) 0.3 TH/MM3 Basophils # (Auto) 0.1 TH/MM3 CBC Comment DIFF FINAL Differential Comment Prothrombin Time 13.7 SEC Prothromb Time International 1.2 RATIO Ratio Activated Partial 33.8 SEC Thromboplast Time Sodium Level 136 MEQ/L Potassium Level 3.4 MEQ/L Chloride Level 100 MEQ/L Carbon Dioxide Level 28.6 MEQ/L Anion Gap 7 MEQ/L Blood Urea Nitrogen 18 MG/DL Creatinine 0.81 MG/DL Estimat Glomerular Filtration 68 ML/MIN Rate Random Glucose 125 MG/DL Calcium Level 8.7 MG/DL Total Bilirubin 0.2 MG/DL Aspartate Amino Transf 16 U/L (AST/SGOT) Alanine Aminotransferase 31 U/L (ALT/SGPT) Alkaline Phosphatase 74 U/L C-Reactive Protein 4.35 MG/DL Total Protein 6.5 GM/DL Albumin 2.8 GM/DL Lipase 72 U/L Urine Color YELLOW Urine Turbidity CLEAR Urine pH 6.0 Urine Specific [place] 1.008 Urine Protein NEG mg/dL Urine Glucose (UA) NEG mg/dL Urine Ketones NEG mg/dL Urine Occult Blood NEG Urine Nitrite NEG Urine Bilirubin NEG Urine Urobilinogen LESS THAN 2.0 MG/DL Urine Leukocyte Esterase MOD Urine RBC LESS THAN 1 /hpf Urine WBC 37 /hpf Urine Squamous Epithelial <1 /hpf Cells Urine Transitional Epithelial <1 /hpf Cells Microscopic Urinalysis Comment CULTURE INDICATED MDM Medical Decision Making Medical Screen Exam Complete: Yes Emergency Medical Condition: Yes Medical Record Reviewed: Yes Interpretation(s) Last Impressions Head CT 11/26/1650 Signed Impressions: Service Date/Time: Saturday, November 26, 2016 01:33 - CONCLUSION: Normal examination for a patient of this age. Boubacar Underwood MD Chest X-Ray 11/26/1650 Signed Impressions: Service Date/Time: Saturday, November 26, 2016 01:07 - CONCLUSION: No significant change has occurred. Boubacar Underwood MD Differential Diagnosis Latent intracranial hemorrhage status post trauma, versus viral syndrome, versus electrolyte abnormality Narrative Course During the course of the patients emergency department visit, the patients history, examination, and differential diagnosis were reviewed with the patient. The patient had IV access obtained and blood work sent for analysis. The patient was placed on a monitoring manager with oximetry and blood pressure monitoring. The patient was provided Zofran 4 mg IV 1, normal saline a 500 mL bolus 1. The patient was given morphine 2 mg IV 1 for pain. The patients laboratory studies were reviewed and remarkable for a CBC that shows a white count of 9.4, hemoglobin 10.5, platelets 166 with a normal differential. CMP is remarkable for a potassium of 3.4 which will be supplemented orally, glucose 125, C-reactive protein 4.35, lipase 72, PT 13.7, INR 1.2, PTT 33.8, urinalysis shows moderate leukocyte esterase, 37 WBCs area culture is indicated, however the patient is on IV antibiotic infusion therapy for chronic UTI. He received an infusion today. Radiology studies were reviewed and remarkable for CT scan of the brain was read as negative by the reading radiologist. Chest x-ray showed no acute abnormality. The patient will be started on oral rehydration therapy. If the patient is able to tolerate this well the patient will be discharged home with a prescription for Zofran. Prior to discharge the patient was given a Percocet 5 mg by mouth 1. She normally takes 10 mg of Percocet when necessary for her chronic back pain. The patient reports that she will take her usual prescription at home. The patient is resting comfortably and feels better, is alert and in no distress. The patients results and examination findings were discussed with the patient. The repeat examination is unremarkable and benign. The history, exam, diagnostic testing, and current condition do not suggest any significant pathology to warrant further testing, continued ED treatment, admission, or surgical evaluation at this point. The vital signs have been stable. The patient does not have uncontrollable pain, intractable vomiting, or other significant symptoms. The patient's condition is stable and appropriate for discharge. The patient will pursue further outpatient evaluation with a primary care physician or other designated or consulting physician as indicated in the discharge instructions. The patient expressed understanding and was agreeable with this plan. Diagnosis Primary Impression: Nausea & vomiting Qualified Code: R11.2 - Non-intractable vomiting with nausea, unspecified vomiting type Additional Impressions: Postconcussive syndrome Subconjunctival hemorrhage of right eye Referrals: Primary Care Physician Patient Instructions: Acute Nausea and Vomiting (ED), General Instructions, Head Injury (ED), Subconjunctival Hemorrhage (ED) Med/Other Pt SpecificInfo: Prescription(s) given Scripts Ondansetron Odt (Zofran Odt)4 Mg Tab4 Mg SL Q6HR PRN (Nausea/Vomiting) #7 TAB Ref 0 Prov:Qing High MD 11/26/16 Disposition: 01 DISCHARGE HOME Condition: Stable Qing High MD Nov 26, 2016 02:36
[2016-11-26] MEDS ORDERED: MORPHINE SULFATE 4 MG/ML INJ IV PUSH ONE (04:15)
[2016-11-26] MEDS ORDERED: oxyCODONE/ACETAMINOPHEN 5 MG/325 MG TAB PO ONE (05:15)
== END 2016-11-26 05:34 | disposition home or self-care (01) ==
LOC: NEPC 21:09
DX: R11.2 Nausea with vomiting, unspecified (principal); F07.81 Postconcussional syndrome; H11.31 Conjunctival hemorrhage, right eye; S00.03XA Contusion of scalp, initial encounter; J45.909 Unspecified asthma, uncomplicated; E11.9 Type 2 diabetes mellitus without complications; I10 Essential (primary) hypertension; V58.4XXA Person boarding or alighting a pick-up truck or van injured in noncollision transport accident, initial encounter; Y93.89 Activity, other specified; Y92.9 Unspecified place or not applicable; Z79.01 Long term (current) use of anticoagulants
CPT/HCPCS: 70450; 71010; 80053; 81001; 83690; 85025; 85610; 85730; 86140; 87086; 96361; 96374; 96375; 99284; J2270; J2405; J7040

== ENCOUNTER → 2016-12-02 | Outpatient (CLI) | payer MEDICARE ==
[~2016-12-02] MED LIST changes: +SIMV10TA PO; +ZOFR4TAB3 SL
[2016-12-02 15:51] LABS: MEAN CELL VOLUME 95.9 FL (80.0-100.0); MEAN CORPUSCULAR HEMOGLOBIN 31.4 PG (27.0-34.0); MEAN CORPUSCULAR HGB CONC 32.8 % (32.0-36.0); PLATELET COUNT 234 TH/MM3 (150-450); RED BLOOD COUNT 3.34 MIL/MM3 (4.00-5.30); RED CELL DISTRIBUTION WIDTH 13.7 % (11.6-17.2); REVIEW FLAG FINAL; WHITE BLOOD COUNT 9.7 TH/MM3 (4.0-11.0)
[2016-12-02 15:57] LABS: ANION GAP 6 MEQ/L (5-15); AST (GOT) 21 U/L (15-37); BICARBONATE 30.8 MEQ/L (21.0-32.0); BLOOD UREA NITROGEN 20 MG/DL (7-18); CHLORIDE 100 MEQ/L (98-107); GLOMERULAR FILTRATION RATE 54 ML/MIN (>89); GLUCOSE,FASTING 80 MG/DL (74-99); POTASSIUM 4.1 MEQ/L (3.5-5.1); SODIUM (NA) 137 MEQ/L (136-145)
[2016-12-02 16:06] LABS: ALKALINE PHOSPHATASE 74 U/L (45-117); ALT (GPT) 45 U/L (10-53); FREE T4 0.99 NG/DL (0.76-1.46); HDL CHOLESTEROL 49.3 MG/DL (40.0-60.0); LDL CHOLESTEROL 61 MG/DL (0-99); TOTAL BILIRUBIN ADULT 0.2 MG/DL (0.2-1.0)
[2016-12-02 16:14] LABS: MICRO ALBUMIN RANDOM URINE RAW 5.8 MG/L (0.0-30.0)
[2016-12-02 16:39] LABS: HEMOGLOBIN A1b 2.1 %; HEMOGLOBIN LA1C 2.2 %; HEMOGLOBIN P3 4.7 %
== END ==
LOC: PLAB 11:53
PROVIDERS: ATTEND Internal Medicine Interventional Cardiology
DX: I50.9 Heart failure, unspecified (principal); I12.9 Hypertensive chronic kidney disease with stage 1 through stage 4 chronic kidney disease, or unspecified chronic kidney disease; N18.3 Chronic kidney disease, stage 3 (moderate); E11.22 Type 2 diabetes mellitus with diabetic chronic kidney disease; D63.1 Anemia in chronic kidney disease
CPT/HCPCS: 36415; 80053; 80061; 82043; 83036; 84439; 84443; 84481; 85027

== ENCOUNTER → 2017-04-10 | Outpatient (CLI) | payer MEDICARE ==
[2017-04-10 13:29] LABS: ANION GAP 8 MEQ/L (5-15); AST (GOT) 21 U/L (15-37); BLOOD UREA NITROGEN 22 MG/DL (7-18); CHLORIDE 99 MEQ/L (98-107); GLOMERULAR FILTRATION RATE 58 ML/MIN (>89); GLUCOSE,FASTING 114 MG/DL (74-99); POTASSIUM 4.3 MEQ/L (3.5-5.1); SODIUM (NA) 132 MEQ/L (136-145)
[2017-04-10 13:33] LABS: ALKALINE PHOSPHATASE 69 U/L (45-117); ALT (GPT) 22 U/L (10-53); FERRITIN 128 NG/ML (8-252); TOTAL BILIRUBIN ADULT 0.3 MG/DL (0.2-1.0); TRANSFERRIN IRON PROFILE 251 MG/DL (200-360)
[2017-04-10 13:38] LABS: FREE T4 1.32 NG/DL (0.76-1.46)
== END ==
LOC: PLAB 10:57
PROVIDERS: ATTEND Internal Medicine Interventional Cardiology
DX: I25.10 Atherosclerotic heart disease of native coronary artery without angina pectoris (principal); E11.9 Type 2 diabetes mellitus without complications; D63.8 Anemia in other chronic diseases classified elsewhere; R06.09 Other forms of dyspnea; I10 Essential (primary) hypertension; E78.2 Mixed hyperlipidemia; R00.2 Palpitations; I38 Endocarditis, valve unspecified; Z79.899 Other long term (current) drug therapy; Z68.28 Body mass index [BMI] 28.0-28.9, adult
CPT/HCPCS: 36415; 80053; 82728; 83540; 83550; 84439; 84443

== ENCOUNTER → 2017-05-22 | Outpatient (CLI) | payer MEDICARE ==
[~2017-05-22] MED LIST changes: -CENTTAB8 PO; -FOLI1TAB4 PO; +FOLI1TAB6 PO; +MULT1TAB46 PO; -PRIL20CA9 PO; +PRIL20TA2 PO; +ROSU1TAB4 PO; -VITA10007 PO; -VITA400T2 PO; +VITA500T83 PO; +VITATAB56 PO
[2017-05-22 18:15] LABS: AUTOMATED NEUTROPHIL # 10.4 TH/MM3 (1.8-7.7); BASOPHIL % 0.2 % (0.0-2.0); EOSINOPHIL # 0.1 TH/MM3 (0-0.4); EOSINOPHIL % 0.6 % (0.0-4.0); HEMATOCRIT 34.9 % (35.0-46.0); HEMO FLAGS DIFF FINAL; LYMPH % 19.5 % (9.0-44.0); LYMPHOCYTE # 2.7 TH/MM3 (1.0-4.8); MEAN CORPUSCULAR HEMOGLOBIN 30.7 PG (27.0-34.0); MEAN CORPUSCULAR HGB CONC 33.3 % (32.0-36.0); MONO % 5.5 % (0.0-8.0); NEUT % 74.2 % (16.0-70.0); PLATELET COUNT 259 TH/MM3 (150-450); RED BLOOD COUNT 3.79 MIL/MM3 (4.00-5.30); RED CELL DISTRIBUTION WIDTH 13.4 % (11.6-17.2); WHITE BLOOD COUNT 14.1 TH/MM3 (4.0-11.0)
[2017-05-22 18:17] LABS: ANION GAP 11 MEQ/L (5-15); AST (GOT) 14 U/L (15-37); BICARBONATE 25.4 MEQ/L (21.0-32.0); BLOOD UREA NITROGEN 53 MG/DL (7-18); CHLORIDE 95 MEQ/L (98-107); GLOMERULAR FILTRATION RATE 20 ML/MIN (>89); POTASSIUM 3.7 MEQ/L (3.5-5.1); SODIUM (NA) 131 MEQ/L (136-145)
[2017-05-22 18:20] LABS: ALKALINE PHOSPHATASE 71 U/L (45-117); ALT (GPT) 18 U/L (10-53); TOTAL BILIRUBIN ADULT 0.3 MG/DL (0.2-1.0)
== END ==
LOC: PLAB 15:42
PROVIDERS: ATTEND Internal Medicine
DX: E11.9 Type 2 diabetes mellitus without complications (principal); R11.0 Nausea
CPT/HCPCS: 36415; 80053; 83690; 85025

== ENCOUNTER → 2017-06-05 | Outpatient (CLI) | payer MEDICARE ==
[~2017-06-05] MED LIST changes: -LEVO125T4 PO; -SIMV10TA PO; -TRAM50TA PO
[2017-06-05 17:54] LABS: BICARBONATE 25.5 MEQ/L (21.0-32.0)
== END ==
LOC: PLAB 15:10
PROVIDERS: ATTEND Internal Medicine
DX: N18.3 Chronic kidney disease, stage 3 (moderate) (principal); D63.8 Anemia in other chronic diseases classified elsewhere
CPT/HCPCS: 36415; 80048

== ENCOUNTER → 2017-06-16 | Outpatient (CLI) | payer MEDICARE ==
[2017-06-16 16:59] LABS: AUTOMATED NEUTROPHIL # 10.3 TH/MM3 (1.8-7.7); BASOPHIL # 0.1 TH/MM3 (0-0.2); BASOPHIL % 0.4 % (0.0-2.0); EOSINOPHIL # 0.2 TH/MM3 (0-0.4); EOSINOPHIL % 1.1 % (0.0-4.0); HEMATOCRIT 30.9 % (35.0-46.0); HEMO FLAGS DIFF FINAL; LYMPH % 20.7 % (9.0-44.0); MEAN CELL VOLUME 92.6 FL (80.0-100.0); MEAN CORPUSCULAR HEMOGLOBIN 30.2 PG (27.0-34.0); MEAN CORPUSCULAR HGB CONC 32.6 % (32.0-36.0); MONO % 6.1 % (0.0-8.0); NEUT % 71.7 % (16.0-70.0); PLATELET COUNT 273 TH/MM3 (150-450); RED BLOOD COUNT 3.34 MIL/MM3 (4.00-5.30); RED CELL DISTRIBUTION WIDTH 13.4 % (11.6-17.2); WHITE BLOOD COUNT 14.3 TH/MM3 (4.0-11.0)
[2017-06-16 17:26] LABS: ALT (GPT) 31 U/L (10-53); ANION GAP 6 MEQ/L (5-15); AST (GOT) 19 U/L (15-37); BICARBONATE 29.6 MEQ/L (21.0-32.0); BLOOD UREA NITROGEN 32 MG/DL (7-18); CHLORIDE 99 MEQ/L (98-107); GLOMERULAR FILTRATION RATE 39 ML/MIN (>89); POTASSIUM 4.4 MEQ/L (3.5-5.1); SODIUM (NA) 135 MEQ/L (136-145)
[2017-06-16 17:29] LABS: ALKALINE PHOSPHATASE 75 U/L (45-117); TOTAL BILIRUBIN ADULT 0.3 MG/DL (0.2-1.0)
== END ==
LOC: PLAB 15:43
PROVIDERS: ATTEND Internal Medicine
DX: N18.3 Chronic kidney disease, stage 3 (moderate) (principal); D63.8 Anemia in other chronic diseases classified elsewhere
CPT/HCPCS: 36415; 80053; 85025